=== PATIENT | female | born 1955 | race African-American/Black ===

== ENCOUNTER → 2017-03-30 | Outpatient (CLI) | payer BC ==
--- NOTE | 2017-03-30 19:41 | WOMENS IMAGING REPORT ---
EXAM DESCRIPTION: BILAT SCREENING MAMMO W/CAD COMPLETED DATE/TIME: 03/30/2017 9:09 am REASON FOR STUDY: ROUTINE SCREENING; Z12.31 Z12.31 ENCNTR SCREEN MAMMOGRAM FOR MALIGNANT NEOPLASM O F RICCO COMPARISON: 2014 TECHNIQUE: Standard craniocaudal and mediolateral oblique views of each breast recorded using digita l acquisition. LIMITATIONS: None. FINDINGS: No masses, calcifications or architectural distortion. No areas of suspicion. Read with the assistance of CAD. .[facility] - R2 Cenova Version 1.3 .[facility] Imaging - R2 Cenova Version 1.[address] Imaging - R2 Cenova Version 2.4 .[facility] - R2 Cenova Version 2.4 .[facility] - R2 Crossing Watchman Version 9.2 IMPRESSION: NORMAL MAMMOGRAM. BIRADS 1. BREAST DENSITY: c. The breasts are heterogeneously dense, which may obscure small masses. BIRAD: 1 NEGATIVE RECOMMENDATION: ROUTINE SCREENING Please continue yearly screening in March 2018. Please consider bilateral screening tomosynthesis COMMENT: The patient has been notified of the results by letter per MQSA requirements. Additional no tification policies are in place for contacting patient with suspicious or incomplete findings. Quality ID #[id number]: The [employer] recommends an annual screening mammogram for women aged 40 years or over. This facility utilizes a reminder system to ensure that all patients receive reminder letters, and/or direct phone calls for appointments. This includes reminders for routine scr eening mammograms, diagnostic mammograms, or other Breast Imaging Interventions when appropriate. Th is patient will be placed in the appropriate reminder system. The [employer] (ACR) has developed recommendations for screening MRI of the breast s in certain patient populations, to be used in conjunction with mammography. Breast MRI surveillanc e may be appropriate for women with more than 20% lifetime risk of developing breast cancer as deter mined by genetic testing, significant family history of the disease, or history of mantle radiation f or Hodgkins Disease. ACR Practice Guidelines 2008. TECHNICAL DOCUMENTATION: FINDING NUMBER: (1) ASSESSMENT: (1) JOB ID: [id number] [employer]- All Rights Reserved Reading location - IP/workstation name: [email or web address]-[email or web address]
== END ==
LOC: WI 08:26
PROVIDERS: ATTEND Internal Medicine
DX: Z12.31 Encounter for screening mammogram for malignant neoplasm of breast (principal)
CPT/HCPCS: 77067

== ENCOUNTER → 2017-09-01 | Outpatient (CLI) | payer BC ==
[2017-09-01 09:55] LABS: ABSOLUTE BASOPHILS # (AUTO) 0.1 10^3/uL (0.0-0.2); ABSOLUTE EOSINOPHILS # (AUTO) 0.3 10^3/uL (0.0-0.6); ABSOLUTE MONOCYTES (AUTO) 0.5 10^3/uL (0.1-1.4); ABSOLUTE NEUT (AUTO) 4.6 10^3/uL (1.7-8.2); ALANINE AMINOTRANSFERASE 28 U/L (9-52); ALBUMIN 3.6 g/dL (3.5-5.0); ALKALINE PHOSPHATASE 60 U/L (38-126); ANION GAP 10 (5-19); ASPARTATE AMINO TRANSFERASE 19 U/L (14-36); BASOPHILS % (AUTO) 1.1 % (0-2); BILIRUBIN,DIRECT 0.2 mg/dL (0.0-0.4); BILIRUBIN,TOTAL 0.5 mg/dL (0.2-1.3); BLOOD UREA NITROGEN 25 mg/dL (7-20); CARBON DIOXIDE 30 mmol/L (22-30); CHLORIDE 105 mmol/L (98-107); CHOLESTEROL 253.57 mg/dL (0-200); EOSINOPHILS % (AUTO) 4.2 % (0-6); GLUCOSE 144 mg/dL (75-110); HEMATOCRIT 33.9 % (36.0-47.0); HEMOGLOBIN 11.6 g/dL (12.0-15.5); MEAN CORPUSCULAR HEMOGLOBIN 29.9 pg (27.0-33.4); MEAN CORPUSCULAR HGB CONC 34.1 g/dL (32.0-36.0); MEAN CORPUSCULAR VOLUME 88 fl (80-97); MONOCYTES % (AUTO) 7.3 % (3-13); PLATELET COUNT 171 10^3/uL (150-450); POTASSIUM 4.5 mmol/L (3.6-5.0); RED BLOOD COUNT 3.86 10^6/uL (3.72-5.28); RED CELL DISTRIBUTION WIDTH 12.9 % (11.5-14.0); SEGMENTED NEUTROPHILS % (AUTO) 72.4 % (42-78); SODIUM 144.5 mmol/L (137-145); TOTAL CELLS COUNTED % (AUTO) 100 %; TOTAL PROTEIN 6.7 g/dL (6.3-8.2); TRIGLYCERIDES 47 mg/dL (<150); URIC ACID 4.6 mg/dL (2.5-7.5); WHITE BLOOD COUNT 6.3 10^3/uL (4.0-10.5)
[2017-09-01 10:00] LABS: APPEARANCE,URINE SLIGHTLY-CLOUDY; BILIRUBIN,URINE NEGATIVE (NEGATIVE); COLOR,URINE YELLOW; GLUCOSE, URINE 50 mg/dL (NEGATIVE); KETONES,URINE NEGATIVE (NEGATIVE); LEUKOCYTE ESTERASE,URINE MODERATE (NEGATIVE); NITRITE,URINE NEGATIVE (NEGATIVE); PROTEIN,URINE 100 mg/dL (NEGATIVE); URINE SPECIFIC GRAVITY 1.019; UROBILINOGEN,URINE NEGATIVE mg/dL (<2.0)
[2017-09-01 10:06] LABS: DIRECT LDL 131 mg/dL (<100)
[2017-09-01 10:11] LABS: FREE T4 (FREE THYROXINE) 0.84 ng/dL (0.78-2.19)
[2017-09-01 10:25] LABS: UR PRO/CREAT RATIO RESULT 0.7 mg/mg (0.0-0.2); URINE CREATININE 102.7 mg/dL (15-278); URINE PROTEIN 69.9 mg/dL (<12)
[2017-09-01 10:25] LABS: THYROID STIMULATING HORMONE 1.45 uIU/mL (0.47-4.68)
[2017-09-03 03:36] LABS: CREATININE URINE 99.4 mg/dL (Not Estab.); MICROALBUMIN URINE 317.3 ug/mL (Not Estab.)
== END ==
LOC: LAB 09:16
PROVIDERS: ATTEND Internal Medicine
DX: E11.42 Type 2 diabetes mellitus with diabetic polyneuropathy (principal)
CPT/HCPCS: 36415; 80053; 80061; 81001; 82043; 82570; 83036; 84156; 84439; 84443; 84550; 85025

== ENCOUNTER 2018-06-03 16:48 | Observation (INO) | payer BC ==
[2018-06-03] MEDS ORDERED: NORMAL SALINE 1000 ML 1,000 ML IV PRN ×2 (17:30→20:33)
[2018-06-03] MEDS ORDERED: NITROGLYCERIN 50 MG/D5W 250 ML IV PRN (17:31)
--- NOTE | 2018-06-03 18:15 | RADIOLOGY REPORT (SQ) ---
EXAM DESCRIPTION: CHEST SINGLE VIEW COMPLETED DATE/TIME: 06/03/2018 5:48 pm REASON FOR STUDY: SOB COMPARISON: 02/29/2008 EXAM PARAMETERS: NUMBER OF VIEWS: One view. TECHNIQUE: Single frontal radiographic view of the chest acquired. RADIATION DOSE: NA LIMITATIONS: None. FINDINGS: LUNGS AND PLEURA: No opacities, masses or pneumothorax. No pleural effusion. MEDIASTINUM AND HILAR STRUCTURES: No masses. Contour normal. HEART AND VASCULAR STRUCTURES: Heart normal in size. Normal vasculature. BONES: No acute findings. HARDWARE: None in the chest. OTHER: No other significant finding. IMPRESSION: NO ACUTE RADIOGRAPHIC FINDING IN THE CHEST. TECHNICAL DOCUMENTATION: JOB ID: [id number] [employer]- All Rights Reserved Reading location - IP/workstation name: [email or web address]
[2018-06-03] MEDS: ENALAPRILAT DIHYDRATE INJ/PF 2.5 MG/2 ML SDV IV SCH (18:24)
[2018-06-03 19:21] LABS: ABSOLUTE BASOPHILS # (AUTO) 0.1 10^3/uL (0.0-0.2); ABSOLUTE EOSINOPHILS # (AUTO) 0.4 10^3/uL (0.0-0.6); ABSOLUTE LYMPHOCYTES (AUTO) 1.1 10^3/uL (0.5-4.7); ABSOLUTE MONOCYTES (AUTO) 0.5 10^3/uL (0.1-1.4); ABSOLUTE NEUT (AUTO) 3.8 10^3/uL (1.7-8.2); BASOPHILS % (AUTO) 1.1 % (0-2); EOSINOPHILS % (AUTO) 7.6 % (0-6); HEMATOCRIT 35.3 % (36.0-47.0); HEMOGLOBIN 11.8 g/dL (12.0-15.5); LYMPHOCYTES % (AUTO) 18.1 % (13-45); MEAN CORPUSCULAR HEMOGLOBIN 29.8 pg (27.0-33.4); MEAN CORPUSCULAR HGB CONC 33.5 g/dL (32.0-36.0); MEAN CORPUSCULAR VOLUME 89 fl (80-97); MONOCYTES % (AUTO) 8.6 % (3-13); PLATELET COUNT 194 10^3/uL (150-450); RED BLOOD COUNT 3.97 10^6/uL (3.72-5.28); RED CELL DISTRIBUTION WIDTH 13.7 % (11.5-14.0); SEGMENTED NEUTROPHILS % (AUTO) 64.6 % (42-78); TOTAL CELLS COUNTED % (AUTO) 100 %; WHITE BLOOD COUNT 5.8 10^3/uL (4.0-10.5)
[2018-06-03] MEDS ORDERED: DEXTROSE 50%-WATER SYRINGE 12.5 GM/25 ML DOSE IV PRN (19:30)
[2018-06-03] MEDS ORDERED: DEXTROSE 40% GEL 15 GM TUBE PO PRN (19:30)
[2018-06-03] MEDS ORDERED: GLUCAGON,HUMAN RECOMB 1 MG INJ IM PRN (19:30)
[2018-06-03] MEDS ORDERED: DEXTROSE 40% GEL 15 GM TUBE X 2 PO PRN (19:30)
[2018-06-03] MEDS ORDERED: DEXTROSE 50%-WATER SYRINGE 25 GM/50 ML DOSE IV PRN (19:30)
--- NOTE | 2018-06-03 19:32 | EKG REPORT ---
SEVERITY:- NORMAL ECG - SINUS RHYTHM : Confirmed by: Jakob Randhawa 03-Jun-2018 19:30:42
[2018-06-03 19:38] LABS: ALANINE AMINOTRANSFERASE 15 U/L (9-52); ALBUMIN 3.5 g/dL (3.5-5.0); ALKALINE PHOSPHATASE 81 U/L (38-126); ANION GAP 9 (5-19); ASPARTATE AMINO TRANSFERASE 19 U/L (14-36); BILIRUBIN,DIRECT 0.2 mg/dL (0.0-0.4); BILIRUBIN,TOTAL 0.4 mg/dL (0.2-1.3); BLOOD UREA NITROGEN 25 mg/dL (7-20); CALCIUM 10.2 mg/dL (8.4-10.2); CARBON DIOXIDE 31 mmol/L (22-30); CHLORIDE 99 mmol/L (98-107); CREATINE KINASE 99 U/L (30-135); GLUCOSE 235 mg/dL (75-110); SODIUM 138.6 mmol/L (137-145); TOTAL PROTEIN 6.6 g/dL (6.3-8.2)
--- NOTE | 2018-06-03 20:32 | PDOC H&P ---
History of Present Illness Admission Date/PCP: 06/03/18 16:48 RYLIE RALPH MD History of Present Illness: GABRIELLA RODRIGUEZ is a 62 year old female, Patient was admitted from the office, she came to the office today for follow-up evaluation, the blood pressure recorded was 197 systolic, the POC Accu-Chek that was done in the office was over 300 because of the severe elevated blood pressure and also because of uncontrolled diabetes she was admitted for observation and management. There was no chest pain ,there is no headache no shortness of breath Social History Smoking Status: Former Smoker Frequency of Alcohol Use: None Drugs: None Hx Prescription Drug Abuse: No Family History Parental Family History Reviewed: Yes Children Family History Reviewed: Yes Sibling(s) Family History Reviewed.: Yes Medication/Allergy Home Medications: Aspirin [Aspirin 81 mg Chewable Tablet] 81 mg PO DAILY 06/03/18 Carvedilol [Coreg 25 mg Tablet] 25 mg PO Q12 06/03/18 Hydrochlorothiazide [Hydrodiuril 25 mg Tablet] 25 mg PO DAILY 06/03/18 Insulin Aspart [Novolog Flexpen] 10 units SUBCUT TID 06/03/18 Insulin Glargine,Hum.rec.anlog [Toujeo Solostar] 40 units SUBCUT DAILY 06/03/18 Lisinopril [Prinivil 40 mg Tablet] 40 mg PO Q12 06/03/18 Pravastatin Sodium [Pravachol] 40 mg PO QHS 06/03/18 Allergies/Adverse Reactions: No Known Allergies Allergy (Unverified 06/03/18 17:37) Review of Systems Constitutional: ABSENT: chills, fever(s), headache(s), weight gain, weight loss Eyes: ABSENT: visual disturbances Ears: ABSENT: hearing changes Cardiovascular: ABSENT: chest pain, dyspnea on exertion, edema, orthropnea, palpitations Respiratory: ABSENT: cough, hemoptysis Gastrointestinal: ABSENT: abdominal pain, constipation, diarrhea, hematemesis, hematochezia, nausea, vomiting Genitourinary: ABSENT: dysuria, hematuria Musculoskeletal: ABSENT: joint swelling Integumentary: ABSENT: rash, wounds Neurological: ABSENT: abnormal gait, abnormal speech, confusion, dizziness, focal weakness, syncope Psychiatric: ABSENT: anxiety, depression, homidical ideation, suicidal ideation Endocrine: ABSENT: cold intolerance, heat intolerance, menstrual abnormalities, polydipsia, polyuria Hematologic/Lymphatic: ABSENT: easy bleeding, easy bruising, lymphadenopathy Physical Exam Vital Signs: Temp Pulse Resp BP Pulse Ox 98.0 F 72 14 146/61 H 97 06/03/18 20:11 06/03/18 20:14 06/03/18 20:11 06/03/18 20:14 06/03/18 20:11 Intake & Output 06/02/18 06/03/18 06/04/18 06:59 06:59 06:59 Intake Total 236 Balance 236 Weight 68.674 kg General appearance: PRESENT: no acute distress, well-developed, well-nourished Head exam: PRESENT: atraumatic, normocephalic Eye exam: PRESENT: conjunctiva pink, EOMI, PERRLA Ear exam: PRESENT: normal external ear exam Mouth exam: PRESENT: moist, tongue midline Neck exam: PRESENT: full ROM Respiratory exam: PRESENT: clear to auscultation duran Cardiovascular exam: PRESENT: RRR, +S1, +S2 Pulses: PRESENT: normal dorsalis pedis pul, +2 pedal pulses bilateral Vascular exam: PRESENT: normal capillary refill GI/Abdominal exam: PRESENT: normal bowel sounds, soft Rectal exam: PRESENT: deferred Neurological exam: PRESENT: alert, awake, oriented to person, oriented to place, oriented to time, oriented to situation, CN II-XII grossly intact Psychiatric exam: PRESENT: appropriate affect, normal mood Skin exam: PRESENT: dry, intact, warm Results Laboratory Results: 06/03/18 18:54 06/03/18 18:54 06/03/18 06/03/18 18:54 18:54 WBC 5.8 RBC 3.97 Hgb 11.8 L Hct 35.3 L MCV 89 MCH 29.8 MCHC 33.5 RDW 13.7 Plt Count 194 Seg Neutrophils % 64.6 Lymphocytes % 18.1 Monocytes % 8.6 Eosinophils % 7.6 H Basophils % 1.1 Absolute Neutrophils 3.8 Absolute Lymphocytes 1.1 Absolute Monocytes 0.5 Absolute Eosinophils 0.4 Absolute Basophils 0.1 Sodium 138.6 Potassium 4.0 Chloride 99 Carbon Dioxide 31 H Anion Gap 9 BUN 25 H Creatinine 0.83 Est GFR ( Amer) > 60 Est GFR (Non-Af Amer) > 60 Glucose 235 H Calcium 10.2 Total Bilirubin 0.4 AST 19 ALT 15 Alkaline Phosphatase 81 Total Protein 6.6 Albumin 3.5 06/03/18 18:54 Creatine Kinase 99 Impressions: Chest X-Ray 06/03/18 00:00 IMPRESSION: NO ACUTE RADIOGRAPHIC FINDING IN THE CHEST. Assessment & Plan - Diagnosis (1) Hypertensive urgency Is this a current diagnosis for this admission?: Yes Plan: Treat patient with nitroglycerin (2) Uncontrolled diabetes mellitus Qualifiers: Diabetes mellitus type: type 2 Glycemic state: with hyperglycemia Qualified Code(s): E11.65 - Type 2 diabetes mellitus with hyperglycemia Is this a current diagnosis for this admission?: Yes
[2018-06-03] MEDS ORDERED: INSULIN GLARGINE HUM REC ANLOG 40 UNIT SUBCUT SCH (20:45)
[2018-06-03 20:58] LABS: TROPONIN I < 0.012 ng/mL
[2018-06-03] MEDS: INSULIN LISPRO 100 UNIT/ML 3 ML VIAL SUBCUT SCH (21:45)
[2018-06-03] MEDS: ASPIRIN 81 MG TABLET, CHEWABLE PO SCH (21:46)
[2018-06-03] MEDS: LISINOPRIL 10 MG TABLET PO SCH (21:46)
[2018-06-03] MEDS: CARVEDILOL 12.5 MG TABLET PO SCH (21:46)
[2018-06-03] MEDS ORDERED: ATORVASTATIN CALCIUM 10 MG TABLET PO SCH (22:00)
[2018-06-03] MEDS ORDERED: (PENDING PHARMACY ID) (Pravastatin Sodium [Pravachol] 40 MG) PO SCH (22:00)
[2018-06-04] MEDS: ENALAPRILAT DIHYDRATE INJ/PF 2.5 MG/2 ML SDV IV SCH ×4 (01:43→18:59)
[2018-06-04 03:33] LABS: CREATINE KINASE MB 0.58 ng/mL (<4.55)
[2018-06-04 03:35] LABS: TROPONIN I < 0.012 ng/mL
[2018-06-04 05:56] LABS: APPEARANCE,URINE CLEAR; BILIRUBIN,URINE NEGATIVE (NEGATIVE); COLOR,URINE STRAW; GLUCOSE, URINE >=500 mg/dL (NEGATIVE); KETONES,URINE NEGATIVE (NEGATIVE); LEUKOCYTE ESTERASE,URINE TRACE (NEGATIVE); NITRITE,URINE NEGATIVE (NEGATIVE); PROTEIN,URINE 30 mg/dL (NEGATIVE); URINE SPECIFIC GRAVITY 1.013; UROBILINOGEN,URINE NEGATIVE mg/dL (<2.0)
[2018-06-04] MEDS: INSULIN LISPRO 100 UNIT/ML 3 ML VIAL SUBCUT SCH ×3 (08:01→17:22)
[2018-06-04] MEDS: CARVEDILOL 12.5 MG TABLET PO SCH (10:56)
[2018-06-04] MEDS: ASPIRIN 81 MG TABLET, CHEWABLE PO SCH (10:56)
[2018-06-04] MEDS ORDERED: INSULIN GLARGINE,HUM.REC.ANLOG 1,000 UNIT/10 ML VIAL SUBCUT SCH (11:00)
[2018-06-04] MEDS: LISINOPRIL 10 MG TABLET PO SCH (12:51)
[2018-06-04 13:06] LABS: CREATINE KINASE MB 0.46 ng/mL (<4.55)
[2018-06-04 13:07] LABS: TROPONIN I < 0.012 ng/mL
[2018-06-04 18:41] VITALS: BP 228/93
--- NOTE | 2018-06-04 20:35 | PDOC DISCHARGE SUMMARY ---
General - Admit/Disc Date/PCP Admission Date/Primary Care Provider: 06/03/18 16:48 RYLIE RALPH MD Discharge Date: 06/04/18 - Discharge Diagnosis (1) Hypertensive urgency Is this a current diagnosis for this admission?: Yes (2) Uncontrolled diabetes mellitus Is this a current diagnosis for this admission?: Yes - Additional Information Discharge Diet: Diabetic Discharge Activity: Activity As Tolerated Home Medications: RX: Aspirin [Aspirin 81 mg Chewable Tablet] 81 mg PO DAILY 06/03/18 RX: Carvedilol [Coreg 25 mg Tablet] 25 mg PO Q12 06/03/18 RX: Hydrochlorothiazide [Hydrodiuril 25 mg Tablet] 25 mg PO DAILY 06/03/18 RX: Insulin Aspart [Novolog Flexpen] 10 units SUBCUT TID 06/03/18 RX: Insulin Glargine,Hum.rec.anlog [Toujeo Solostar] 40 units SUBCUT DAILY 06/03/18 RX: Lisinopril [Prinivil 40 mg Tablet] 40 mg PO Q12 06/03/18 RX: Pravastatin Sodium [Pravachol] 40 mg PO QHS 06/03/18 History of Present Illness History of Present Illness: GABRIELLA RODRIGUEZ is a 62 year old female, Patient was admitted from the office, she came to the office today for follow-up evaluation, the blood pressure recorded was 197 systolic, the POC Accu-Chek that was done in the office was over 300 because of the severe elevated blood pressure and also because of uncontrolled diabetes she was admitted for observation and management. There was no chest pain ,there is no headache no shortness of breath Hospital Course Hospital Course: Patient was admittedFor the management of hypertensive emergency, uncontrolled diabetes, she was treated with IV nitroglycerin, Vasotec, She also was treated with IV fluid for hyperglycemia Physical Exam Vital Signs: Temp Pulse Resp BP Pulse Ox 98.1 F 66 17 228/93 H 100 06/04/18 18:35 06/04/18 18:35 06/04/18 18:35 06/04/18 18:35 06/04/18 18:35 Intake & Output 06/03/18 06/04/18 06/05/18 06:59 06:59 06:59 Intake Total 236 708 Output Total 450 1200 Balance -214 -492 Weight 65.3 kg General appearance: PRESENT: no acute distress Eye exam: PRESENT: PERRLA Respiratory exam: PRESENT: clear to auscultation duran Cardiovascular exam: PRESENT: +S1, +S2 GI/Abdominal exam: PRESENT: soft Neurological exam: PRESENT: alert, CN II-XII grossly intact Results Laboratory Results: 06/03/18 18:54 06/03/18 18:54 06/04/18 04:30 Urine Color STRAW Urine Appearance CLEAR Urine pH 6.0 Ur Specific [place] 1.013 Urine Protein 30 H Urine Glucose (UA) >=500 H Urine Ketones NEGATIVE Urine Blood MODERATE H Urine Nitrite NEGATIVE Ur Leukocyte Esterase TRACE H Urine WBC (Auto) 0 Urine RBC (Auto) 0 06/03/18 06/03/18 06/03/18 18:54 19:55 19:55 Creatine Kinase 99 CK-MB (CK-2) 0.90 Troponin I < 0.012 NT-Pro-B Natriuret Pep 40 06/04/18 06/04/18 06/04/18 02:30 02:30 12:10 Creatine Kinase 65 63 CK-MB (CK-2) 0.58 Troponin I < 0.012 NT-Pro-B Natriuret Pep 06/04/18 12:10 Creatine Kinase CK-MB (CK-2) 0.46 Troponin I < 0.012 NT-Pro-B Natriuret Pep Impressions: Chest X-Ray 06/03/18 00:00 IMPRESSION: NO ACUTE RADIOGRAPHIC FINDING IN THE CHEST. Qualifiers - * PATIENT BEING DISCHARGED WITH ANY OF THE FOLLOWING DIAGNOSIS: No
== END 2018-06-04 18:49 | disposition home or self-care (01) ==
LOC: 3S 16:48
PROVIDERS: ADMIT Internal Medicine; ATTEND Internal Medicine
DX: I16.0 Hypertensive urgency (principal); E11.65 Type 2 diabetes mellitus with hyperglycemia; Z87.891 Personal history of nicotine dependence; Z79.899 Other long term (current) drug therapy; Z79.4 Long term (current) use of insulin; Z79.82 Long term (current) use of aspirin
CPT/HCPCS: 36415 ×2; 82553 ×2; 82962 ×2; 82550 ×2; 85025; 80076; 80048; 81001; 84484 ×2; 83036; 83880; 71045; 93005; 93010; G0378 ×2; J3490 ×3; J1815 ×3; G0379

== ENCOUNTER → 2018-10-23 | Outpatient (CLI) | payer BC ==
--- NOTE | 2018-10-23 15:23 | RADIOLOGY REPORT (SQ) ---
EXAM DESCRIPTION: VENOUS BILATERAL LOWER COMPLETED DATE/TIME: 10/23/2018 2:36 pm REASON FOR STUDY: SWELLING R22.43 LOCALIZED SWELLING, MASS AND LUMP, LOWER LIMB, BILATE COMPARISON: None. TECHNIQUE: Dynamic and static bell scale and color images acquired of both lower extremity venous sy stems. Selected spectral images acquired with additional compression and augmentation maneuvers. Imag es stored on PACS. LIMITATIONS: None. FINDINGS: RIGHT LEG COMMON FEMORAL AND FEMORAL: Normal phasicity, compression and augmentation. No visualized echogenic m aterial on bell scale. No defects on color images. POPLITEAL: Normal compression and augmentation. No visualized echogenic material on bell scale. No de fects on color images. CALF VESSELS: Normal compression and augmentation. No visualized echogenic material on bell scale. No defects on color image. GSV AND SSV: Normal compression. No visualized echogenic material on bell scale. No defects on color images. ANY DEEP VENOUS INSUFFICIENCY: Not evaluated. ANY EVIDENCE OF POPLITEAL CYST: No. OTHER: Subcutaneous edema noted. LEFT LEG COMMON FEMORAL AND FEMORAL: Normal phasicity, compression and augmentation. No visualized echogenic m aterial on bell scale. No defects on color images. POPLITEAL: Normal compression and augmentation. No visualized echogenic material on bell scale. No de fects on color images. CALF VESSELS: Normal compression and augmentation. No visualized echogenic material on bell scale. No defects on color images. GSV AND SSV: Normal compression. No visualized echogenic material on bell scale. No defects on color images. ANY DEEP VENOUS INSUFFICIENCY: Not evaluated. ANY EVIDENCE POPLITEAL CYST: No. OTHER: Mild subcutaneous edema noted. IMPRESSION: No evidence of DVT or SVT in either leg. Bilateral lower extremity subcutaneous edema noted. TECHNICAL DOCUMENTATION: JOB ID: [id number] [employer]- All Rights Reserved Reading location - IP/workstation name: [email or web address]
== END ==
LOC: SP 13:52
PROVIDERS: ATTEND Internal Medicine
DX: R22.43 Localized swelling, mass and lump, lower limb, bilateral (principal)
CPT/HCPCS: 93970

== ENCOUNTER 2019-12-01 11:59 | Observation (INO) | payer BC ==
[2019-12-01 13:33] LABS: ABSOLUTE EOSINOPHILS # (AUTO) 0.1 10^3/uL (0.0-0.6); ABSOLUTE LYMPHOCYTES (AUTO) 0.4 10^3/uL (0.5-4.7); ABSOLUTE MONOCYTES (AUTO) 0.3 10^3/uL (0.1-1.4); ABSOLUTE NEUT (AUTO) 3.4 10^3/uL (1.7-8.2); BASOPHILS % (AUTO) 1.1 % (0-2); LYMPHOCYTES % (AUTO) 8.8 % (13-45); MEAN CORPUSCULAR HEMOGLOBIN 30.4 pg (27.0-33.4); MEAN CORPUSCULAR HGB CONC 34.4 g/dL (32.0-36.0); MEAN CORPUSCULAR VOLUME 88 fl (80-97); MONOCYTES % (AUTO) 7.9 % (3-13); PLATELET COUNT 161 10^3/uL (150-450); RED BLOOD COUNT 3.96 10^6/uL (3.72-5.28); RED CELL DISTRIBUTION WIDTH 13.9 % (11.5-14.0); SEGMENTED NEUTROPHILS % (AUTO) 79.2 % (42-78); TOTAL CELLS COUNTED % (AUTO) 100 %; WHITE BLOOD COUNT 4.3 10^3/uL (4.0-10.5)
[2019-12-01] MEDS: NORMAL SALINE 1000 ML 1,000 ML IV PRN ×2 (13:46→21:44)
[2019-12-01 13:56] LABS: ALBUMIN 4.2 g/dL (3.5-5.0); ALKALINE PHOSPHATASE 65 U/L (38-126); ANION GAP 12 (5-19); ASPARTATE AMINO TRANSFERASE 26 U/L (14-36); BILIRUBIN,DIRECT 0.4 mg/dL (0.0-0.4); BILIRUBIN,TOTAL 0.7 mg/dL (0.2-1.3); BLOOD UREA NITROGEN 41 mg/dL (7-20); CALCIUM 10.3 mg/dL (8.4-10.2); CARBON DIOXIDE 29 mmol/L (22-30); CHLORIDE 100 mmol/L (98-107); GLUCOSE 159 mg/dL (75-110); POTASSIUM 4.1 mmol/L (3.6-5.0); TOTAL PROTEIN 7.5 g/dL (6.3-8.2)
[2019-12-01] MEDS ORDERED: CHLORPHENIRAMINE MALEATE 4 MG TABLET PO PRN (15:53)
[2019-12-01] MEDS ORDERED: INSULIN GLARGINE HUM REC ANLOG 20 UNIT SUBCUT SCH (16:00)
[2019-12-01] MEDS ORDERED: (PENDING PHARMACY ID) (Dapagliflozin Propanediol [Farxiga] 10 MG) PO SCH (16:00)
[2019-12-01] MEDS ORDERED: INSULIN GLARGINE,HUM.REC.ANLOG 1,000 UNIT/10 ML VIAL (PYX) SUBCUT ONE (17:00)
[2019-12-01] MEDS: CARVEDILOL 12.5 MG TABLET PO SCH (17:41)
[2019-12-01] MEDS: LISINOPRIL 10 MG TABLET PO SCH (17:41)
[2019-12-01] MEDS: CYANOCOBALAMIN (VITAMIN B-12) 1,000 MCG TABLET PO SCH (17:41)
[2019-12-01] MEDS: HYDROCHLOROTHIAZIDE 25 MG TABLET PO SCH (17:42)
[2019-12-01] MEDS: ASPIRIN 81 MG TABLET, CHEWABLE PO SCH (17:42)
--- NOTE | 2019-12-01 18:25 | PDOC H&P ---
History of Present Illness Admission Date/PCP: 12/01/19 12:28 RYLIE RALPH MD History of Present Illness: GABRIELLA RODRIGUEZ is a 63 year old female,Patient came to the office today for ev aluation of severe fatigue, loss of energy, She has type 1 diabetes mellitus, poorly controlled, she was admitted directly from the office for hydration and management., She has diabetes mellitus type 1 poorly controlled she does not know how to count calories, she is not receptive for insulin pump, She was just recently referred to endocrinology for assistance with the control of diabetes Past Medical History Endocrine Medical History: Reports: Diabetes Mellitus Type 1 Psychiatric Medical History: Denies: Depression Social History Smoking Status: Never Smoker Electronic Cigarette use?: No Frequency of Alcohol Use: None Hx Recreational Drug Use: No Drugs: None Hx Prescription Drug Abuse: No Family History Parental Family History Reviewed: Yes Children Family History Reviewed: Yes Sibling(s) Family History Reviewed.: Yes Medication/Allergy Home Medications: Aspirin [Aspirin 81 mg Chewable Tablet] 81 mg PO DAILY 06/03/18 Carvedilol [Coreg 25 mg Tablet] 25 mg PO Q12 06/03/18 Hydrochlorothiazide [Hydrodiuril 25 mg Tablet] 25 mg PO DAILY 06/03/18 Insulin Aspart [Novolog Flexpen] 5 units SUBCUT TID 06/03/18 Insulin Glargine,Hum.rec.anlog [Toujeo Solostar] 20 units SUBCUT DAILY 06/03/18 Lisinopril [Prinivil 40 mg Tablet] 40 mg PO Q12 06/03/18 Pravastatin Sodium [Pravachol] 40 mg PO QHS 06/03/18 Chlorpheniramine Maleate [Allergy 4-Hour] 4 mg PO Q6HP PRN 12/01/19 Cyanocobalamin (Vitamin B-12) [Vitamin B-12 1000 Mcg Tablet] 1 tab PO DAILY 12/01/19 Dapagliflozin Propanediol [Farxiga] 10 mg PO DAILY 12/01/19 Allergies/Adverse Reactions: No Known Allergies Allergy (Unverified 06/03/18 17:37) Review of Systems Constitutional: PRESENT: fatigue, weakness Eyes: ABSENT: visual disturbances Ears: ABSENT: hearing changes Cardiovascular: ABSENT: chest pain, dyspnea on exertion, edema, orthropnea, palpitations Respiratory: ABSENT: cough, hemoptysis Gastrointestinal: ABSENT: abdominal pain, constipation, diarrhea, hematemesis, hematochezia, nausea, vomiting Genitourinary: ABSENT: dysuria, hematuria Musculoskeletal: ABSENT: joint swelling Integumentary: ABSENT: rash, wounds Neurological: PRESENT: weakness. ABSENT: abnormal gait, abnormal speech, confusion, dizziness, focal weakness, syncope Psychiatric: ABSENT: anxiety, depression, homidical ideation, suicidal ideation Endocrine: ABSENT: cold intolerance, heat intolerance, menstrual abnormalities, polydipsia, polyuria Hematologic/Lymphatic: ABSENT: easy bleeding, easy bruising, lymphadenopathy Physical Exam Vital Signs: Temp Pulse Resp BP Pulse Ox 98.7 F 79 15 139/63 H 97 12/01/19 15:44 12/01/19 15:44 12/01/19 15:44 12/01/19 15:44 12/01/19 15:44 Intake & Output 11/30/19 12/01/19 12/02/19 06:59 06:59 06:59 Weight 58 kg Head exam: PRESENT: atraumatic, normocephalic Eye exam: PRESENT: PERRLA Ear exam: PRESENT: normal external ear exam Mouth exam: PRESENT: moist, tongue midline Neck exam: PRESENT: full ROM Respiratory exam: PRESENT: clear to auscultation duran Cardiovascular exam: PRESENT: RRR, +S1, +S2 Pulses: PRESENT: normal dorsalis pedis pul, +2 pedal pulses bilateral Vascular exam: PRESENT: normal capillary refill GI/Abdominal exam: PRESENT: normal bowel sounds, soft Rectal exam: PRESENT: deferred Neurological exam: PRESENT: alert, CN II-XII grossly intact Psychiatric exam: PRESENT: appropriate affect, normal mood Skin exam: PRESENT: dry Results Laboratory Results: 12/01/19 13:17 12/01/19 13:17 12/01/19 12/01/19 13:17 13:17 WBC 4.3 RBC 3.96 Hgb 12.0 Hct 35.0 L MCV 88 MCH 30.4 MCHC 34.4 RDW 13.9 Plt Count 161 Seg Neutrophils % 79.2 H Sodium 140.5 Potassium 4.1 Chloride 100 Carbon Dioxide 29 Anion Gap 12 BUN 41 H Creatinine 1.27 H Est GFR ( Amer) 51 L Glucose 159 H Calcium 10.3 H Total Bilirubin 0.7 AST 26 Alkaline Phosphatase 65 Total Protein 7.5 Albumin 4.2 Assessment & Plan - Diagnosis (1) Type 1 diabetes mellitus with hyperglycemia Is this a current diagnosis for this admission?: Yes Plan: She has poorly controlled diabetes with dehydration, she is admitted for observation, for rehydration (2) Dehydration Is this a current diagnosis for this admission?: Yes - Time Time Spent: Greater than 70 Minutes Critical Time spent with patient: 35 or more minutes Anticipated Discharge Disposition: Home, Self Care Anticipated Discharge Timeframe: within 24 hours - Inpatient Certification Based on my medical assessment, after consideration of the patient's comorbidities, presenting symptoms, or acuity I expect that the services needed warrant INPATIENT care.: Yes I certify that my determination is in accordance with my understanding of Medicare's requirements for reasonable and necessary INPATIENT services [42 CFR 412.3e].: Yes
[2019-12-01] MEDS: ATORVASTATIN CALCIUM 10 MG TABLET PO SCH (21:44)
[2019-12-01] MEDS ORDERED: (PENDING PHARMACY ID) (Pravastatin Sodium [Pravachol] 40 MG) PO SCH (22:00)
[2019-12-02] MEDS: CARVEDILOL 12.5 MG TABLET PO SCH ×2 (05:10→17:18)
[2019-12-02] MEDS: LISINOPRIL 10 MG TABLET PO SCH ×2 (05:10→17:20)
[2019-12-02] MEDS: NORMAL SALINE 1000 ML 1,000 ML IV PRN (08:27)
[2019-12-02 09:01] LABS: ANION GAP 11 (5-19); BLOOD UREA NITROGEN 38 mg/dL (7-20); CALCIUM 9.6 mg/dL (8.4-10.2); CARBON DIOXIDE 25 mmol/L (22-30); CHLORIDE 102 mmol/L (98-107); GLUCOSE 199 mg/dL (75-110); POTASSIUM 4.3 mmol/L (3.6-5.0)
[2019-12-02] MEDS ORDERED: DEXTROSE 40% GEL 15 GM TUBE PO PRN (09:30)
[2019-12-02] MEDS ORDERED: DEXTROSE 40% GEL 15 GM TUBE X 2 PO PRN (09:30)
[2019-12-02] MEDS ORDERED: DEXTROSE 50%-WATER SYRINGE 25 GM/50 ML DOSE IV PRN (09:30)
[2019-12-02] MEDS ORDERED: GLUCAGON,HUMAN RECOMB 1 MG INJ IM PRN (09:30)
[2019-12-02] MEDS ORDERED: DEXTROSE 50%-WATER SYRINGE 12.5 GM/25 ML DOSE IV PRN (09:30)
[2019-12-02] MEDS: HYDROCHLOROTHIAZIDE 25 MG TABLET PO SCH (09:36)
[2019-12-02] MEDS: ASPIRIN 81 MG TABLET, CHEWABLE PO SCH (09:43)
[2019-12-02] MEDS: CYANOCOBALAMIN (VITAMIN B-12) 1,000 MCG TABLET PO SCH (09:43)
[2019-12-02] MEDS: INSULIN GLARGINE,HUM.REC.ANLOG 1,000 UNIT/10 ML VIAL SUBCUT SCH (09:44)
[2019-12-02] MEDS: INSULIN LISPRO 100 UNIT/ML 3 ML VIAL SUBCUT SCH ×3 (12:08→21:55)
[2019-12-02 17:01] LABS: APPEARANCE,URINE SLIGHTLY-CLOUDY; BILIRUBIN,URINE NEGATIVE (NEGATIVE); COLOR,URINE STRAW; GLUCOSE, URINE >=500 mg/dL (NEGATIVE); KETONES,URINE NEGATIVE (NEGATIVE); LEUKOCYTE ESTERASE,URINE LARGE (NEGATIVE); NITRITE,URINE NEGATIVE (NEGATIVE); PROTEIN,URINE NEGATIVE (NEGATIVE); URINE SPECIFIC GRAVITY 1.014; UROBILINOGEN,URINE NEGATIVE mg/dL (<2.0)
[2019-12-02] MEDS: ATORVASTATIN CALCIUM 10 MG TABLET PO SCH (21:55)
[2019-12-03] MEDS: NORMAL SALINE 1000 ML 1,000 ML IV PRN (04:18)
[2019-12-03] MEDS: INSULIN LISPRO 100 UNIT/ML 3 ML VIAL SUBCUT SCH (09:02)
[2019-12-03] MEDS: HYDROCHLOROTHIAZIDE 25 MG TABLET PO SCH (09:09)
[2019-12-03] MEDS: CARVEDILOL 12.5 MG TABLET PO SCH (09:10)
[2019-12-03] MEDS: ASPIRIN 81 MG TABLET, CHEWABLE PO SCH (09:11)
[2019-12-03] MEDS: CYANOCOBALAMIN (VITAMIN B-12) 1,000 MCG TABLET PO SCH (09:12)
[2019-12-03] MEDS: INSULIN GLARGINE,HUM.REC.ANLOG 1,000 UNIT/10 ML VIAL SUBCUT SCH (09:13)
[2019-12-03] MEDS: LISINOPRIL 10 MG TABLET PO SCH (09:30)
[2019-12-03 10:07] VITALS: BP 156/51
--- NOTE | 2019-12-03 18:01 | PDOC DISCHARGE SUMMARY ---
Impression - Admit/DC Date/PCP Admission Date/Primary Care Provider: 12/01/19 11:59 RYLIE RALPH MD Discharge Date: 12/03/19 - Discharge Diagnosis (1) Type 1 diabetes mellitus with hyperglycemia Is this a current diagnosis for this admission?: Yes (2) Dehydration Is this a current diagnosis for this admission?: Yes - Additional Information Discharge Diet: Diabetic Discharge Activity: Activity As Tolerated Referrals: RYLIE RALPH MD [Primary Care Provider] - 12/11/19 10:00 am Home Medications: Aspirin [Aspirin 81 mg Chewable Tablet] 81 mg PO DAILY 06/03/18 Carvedilol [Coreg 25 mg Tablet] 25 mg PO Q12 06/03/18 Hydrochlorothiazide [Hydrodiuril 25 mg Tablet] 25 mg PO DAILY 06/03/18 Insulin Aspart [Novolog Flexpen] 5 units SUBCUT TID 06/03/18 Insulin Glargine,Hum.rec.anlog [Toujeo Solostar] 20 units SUBCUT DAILY 06/03/18 Lisinopril [Prinivil 40 mg Tablet] 40 mg PO Q12 06/03/18 Pravastatin Sodium [Pravachol] 40 mg PO QHS 06/03/18 Chlorpheniramine Maleate [Allergy 4-Hour] 4 mg PO Q6HP PRN 12/01/19 Cyanocobalamin (Vitamin B-12) [Vitamin B-12 1000 mcg Tablet] 1 tab PO DAILY 12/01/19 Dapagliflozin Propanediol [Farxiga] 10 mg PO DAILY 12/01/19 History of Present Illiness History of Present Illness: GABRIELLA RODRIGUEZ is a 63 year old female,Patient came to the office today for evaluation of severe fatigue, loss of energy, She has type 1 diabetes mellitus, poorly controlled, she was admitted directly from the office for hydration and management., She has diabetes mellitus type 1 poorly controlled she does not know how to count calories, she is not receptive for insulin pump, She was just recently referred to endocrinology for assistance with the control of diabetes Hospital Course Hospital Course: Patient was admitted for the management of dehydration, uncontrolled type 1 diabetes mellitus. She was treated with IV fluid normal saline for rehydration patient feels much better. She was admitted for observation Physical Exam Vital Signs: Temp Pulse Resp BP Pulse Ox 97.7 F 62 16 156/51 H 100 12/03/19 10:05 12/03/19 10:05 12/03/19 10:05 12/03/19 10:05 12/03/19 10:05 Intake & Output 12/02/19 12/03/19 12/04/19 06:59 06:59 06:59 Intake Total 1306 3261 Output Total 1600 1800 Balance -294 1461 Weight 59.3 kg 61.7 kg General appearance: PRESENT: no acute distress Eye exam: PRESENT: PERRLA Respiratory exam: PRESENT: clear to auscultation duran Cardiovascular exam: PRESENT: +S1, +S2 GI/Abdominal exam: PRESENT: soft Neurological exam: PRESENT: alert, CN II-XII grossly intact Results Laboratory Results: WBC 4.3 10^3/uL (4.0-10.5) 12/01/19 13:17 RBC 3.96 10^6/uL (3.72-5.28) 12/01/19 13:17 Hgb 12.0 g/dL (12.0-15.5) 12/01/19 13:17 Hct 35.0 % (36.0-47.0) L 12/01/19 13:17 MCV 88 fl (80-97) 12/01/19 13:17 MCH 30.4 pg (27.0-33.4) 12/01/19 13:17 MCHC 34.4 g/dL (32.0-36.0) 12/01/19 13:17 RDW 13.9 % (11.5-14.0) 12/01/19 13:17 Plt Count 161 10^3/uL (150-450) 12/01/19 13:17 Lymph % (Auto) 8.8 % (13-45) L 12/01/19 13:17 Irwin % (Auto) 7.9 % (3-13) 12/01/19 13:17 Eos % (Auto) 3.0 % (0-6) 12/01/19 13:17 Baso % (Auto) 1.1 % (0-2) 12/01/19 13:17 Absolute Neuts (auto) 3.4 10^3/uL (1.7-8.2) 12/01/19 13:17 Absolute Lymphs (auto) 0.4 10^3/uL (0.5-4.7) L 12/01/19 13:17 Absolute Monos (auto) 0.3 10^3/uL (0.1-1.4) 12/01/19 13:17 Absolute Eos (auto) 0.1 10^3/uL (0.0-0.6) 12/01/19 13:17 Absolute Basos (auto) 0.0 10^3/uL (0.0-0.2) 12/01/19 13:17 Seg Neutrophils % 79.2 % (42-78) H 12/01/19 13:17 Sodium 137.5 mmol/L (137-145) 12/02/19 08:15 Potassium 4.3 mmol/L (3.6-5.0) 12/02/19 08:15 Chloride 102 mmol/L (98-107) 12/02/19 08:15 Carbon Dioxide 25 mmol/L (22-30) 12/02/19 08:15 Anion Gap 11 (5-19) 12/02/19 08:15 BUN 38 mg/dL (7-20) H 12/02/19 08:15 Creatinine 1.25 mg/dL (0.52-1.25) 12/02/19 08:15 Est GFR ( Amer) 52 (>60) L 12/02/19 08:15 Est GFR (MDRD) Non-Af 43 (>60) L 12/02/19 08:15 Glucose 199 mg/dL (75-110) H 12/02/19 08:15 POC Glucose 85 mg/dL (70-110) 12/03/19 07:42 Hemoglobin A1c % 10.5 % (4.7-6.0) H 12/01/19 13:17 Calcium 9.6 mg/dL (8.4-10.2) 12/02/19 08:15 Total Bilirubin 0.7 mg/dL (0.2-1.3) 12/01/19 13:17 Direct Bilirubin 0.4 mg/dL (0.0-0.4) 12/01/19 13:17 Neonat Total Bilirubin Not Reportable 12/01/19 13:17 Neonat Direct Bilirubin Not Reportable 12/01/19 13:17 Neonat Indirect Bili Not Reportable 12/01/19 13:17 AST 26 U/L (14-36) 12/01/19 13:17 ALT 15 U/L (<35) 12/01/19 13:17 Alkaline Phosphatase 65 U/L (38-126) 12/01/19 13:17 Total Protein 7.5 g/dL (6.3-8.2) 12/01/19 13:17 Albumin 4.2 g/dL (3.5-5.0) 12/01/19 13:17 Urine Color STRAW 12/02/19 16:21 Urine Appearance SLIGHTLY-CLOUDY 12/02/19 16:21 Urine pH 6.0 (5.0-9.0) 12/02/19 16:21 Ur Specific [place] 1.014 12/02/19 16:21 Urine Protein NEGATIVE mg/dL (NEGATIVE) 12/02/19 16:21 Urine Glucose (UA) >=500 mg/dL (NEGATIVE) H 12/02/19 16:21 Urine Ketones NEGATIVE mg/dL (NEGATIVE) 12/02/19 16:21 Urine Blood SMALL (NEGATIVE) H 12/02/19 16:21 Urine Nitrite NEGATIVE (NEGATIVE) 12/02/19 16:21 Urine Bilirubin NEGATIVE (NEGATIVE) 12/02/19 16:21 Urine Urobilinogen NEGATIVE mg/dL (<2.0) 12/02/19 16:21 Ur Leukocyte Esterase LARGE (NEGATIVE) H 12/02/19 16:21 Urine WBC (Auto) 55 /HPF 12/02/19 16:21 Urine RBC (Auto) 1 /HPF 12/02/19 16:21 Urine Bacteria (Auto) TRACE /HPF 12/02/19 16:21 Squamous Epi Cells Auto 4 /HPF 12/02/19 16:21 Urine Mucus (Auto) RARE /LPF 12/02/19 16:21 Urine Ascorbic Acid NEGATIVE (NEGATIVE) 12/02/19 16:21 Stroke Is this a Stroke Patient?: No Acute Heart Failure Is this a Heart Failure Patient?: No
== END 2019-12-03 11:12 | disposition home or self-care (01) ==
LOC: 3W 11:59 → OBSVTOIN 12:28 → INTOOBSV 12:28
PROVIDERS: ADMIT Internal Medicine; ATTEND Internal Medicine
DX: E10.65 Type 1 diabetes mellitus with hyperglycemia (principal); E86.0 Dehydration; Z79.82 Long term (current) use of aspirin; Z79.899 Other long term (current) drug therapy
CPT/HCPCS: 36415 ×2; 87086; 82962 ×3; 85025; 87088; 80076; 80048 ×2; 81001; 87186; 83036; G0378 ×2; J1815 ×3; J7030 ×3